=== PATIENT | female | born 1950 | race Caucasian/White ===

== ENCOUNTER 2016-10-30 07:28 | Emergency (ER) | payer MEDICARE ==
[~2016-10-30 07:28] MED LIST: FAMOTIDINE PO; HELIDAC KIT PO; PRILOSEC PO
[2016-10-30] MEDS ORDERED: NO MEDICATIONS (07:37)
== END 2016-10-30 08:00 | disposition home or self-care (01) ==
LOC: SED 07:28
DX: B02.9 Zoster without complications (principal); I10 Essential (primary) hypertension; K21.9 Gastro-esophageal reflux disease without esophagitis; E78.5 Hyperlipidemia, unspecified; F17.210 Nicotine dependence, cigarettes, uncomplicated
CPT/HCPCS: 99282

== ENCOUNTER 2016-11-04 11:29 | Emergency (ER) | payer MEDICARE ==
[~2016-11-04] VITALS: Ht 154.9 cm; Wt 45.4 kg
[~2016-11-04 11:29] MED LIST changes: +NO MEDICATIONS
[2016-11-04 12:37] LABS: ALBUMIN SERUM 4.7 g/dL (3.5-5.0); BILIRUBIN,TOTAL 0.5 mg/dL (0.2-2.0); BUN/CREATININE RATIO 15.55; CALCIUM SERUM 10.1 mg/dL (8.4-10.2); CREATININE SERUM 0.9 mg/dL (0.6-1.4); GLOM FILT RATE Estimated 67.1 mL/min (>60); POTASSIUM 3.4 mmol/L (3.5-5.1); PROTEIN TOTAL SERUM 8.3 g/dL (6.0-8.3)
== END 2016-11-04 13:31 | disposition home or self-care (01) ==
LOC: SED 11:29
PROVIDERS: Emergency Medicine
DX: R11.2 Nausea with vomiting, unspecified (principal); R10.9 Unspecified abdominal pain; E87.6 Hypokalemia
CPT/HCPCS: 80053; 83690; 96361; 96374; 99284; J2405